=== PATIENT | male | born 1960 | race Caucasian/White ===

== ENCOUNTER 2017-01-30 21:47 | Emergency (ER) | payer OTHER ==
[2017-01-30 21:55] VITALS: TEMP 98.1
--- NOTE | 2017-01-30 21:57 | EDPHY ---
H & P Stated Complaint: back pain, etoh tonight Source: Patient Exam Limitations: No limitations - Personal History Current Tetanus/Diphtheria Vaccine: Yes Current Tetanus Diphtheria and Acellular Pertussis (TDAP): Yes - Medical/Surgical History Hx Asthma: No Hx Chronic Respiratory Disease: No Hx Diabetes: No Hx Cardiac Disease: No Hx Renal Disease: No Hx Cirrhosis: No Hx Alcoholism: No Hx HIV/AIDS: No Hx Splenectomy or Spleen Trauma: No Other PMH: back surgeries, chronic back pain - Social History Smoking Status: Never smoked Time Seen by Provider: 01/30/17 21:56 HPI/ROS: HPI: This is a 56-year-old male presents with Chief Complaint: back pain, took wine Location: Lower back Quality: Sharp intense pain Duration: 1-2 hours prior to arrival Signs and Symptoms: No bleeding, no radiation, no numbness, no weakness, no tingling, no incontinence, + decreased range of motion, no swelling, + pain Timing: Acute on chronic Severity: 10/15 Context: Patient presents with complaints of lower back acute on chronic in 10 sharp pain that started while lying in bed approximately 1-2 hours prior to arrival. He has a history of L4-L5 disc herniation suspects myomectomies from Dr. Jose A Sweeney. He reports that he has been working on the porch placing papers that requires twisting and bending actions. He believes that this is the trigger for his back pain. He did drink some wine tonight but does not take any of his Percocet that he has at home. reports that he was ambulatory but slow and stiff. Denies paresthesias/radiation/incontinence/ urinary symptoms. Patient has a pain stimulator in place. Modifying Factors: Wine Comment: ROS: see HPI Constitutional: No fever, no chills, no weight loss Eyes: No blurred vision Respiratory: No shortness of breath, no cough Cardiovascular: No chest pain Gastrointestinal: No nausea, no vomiting no diarrhea Genitourinary: No dysuria Extremities: No myalgias Neurologic: No weakness, no numbness Skin: No rashes Hematologic: No bruising, no bleeding MEDICAL/SURGICAL/SOCIAL HISTORY: Medical history: Chronic back pain Surgical history: Back surgery Social history: CONSTITUTIONAL: awake and alert, no obvious distress HEENT: Atraumatic and normocephalic. NECK: supple, no midline tenderness, flexion 45 degrees, extension 45 degrees, right and left lateral flexion 45 degrees. No meningismus. Cardiovascular: Normal S1/S2, regular rate, regular rhythm, without murmur rub or gallop. PULMONARY/CHEST: Symmetrical and nontender. no crepitus. Clear to auscultation bilaterally. Good air movement. No accessory muscle usage. ABDOMEN: Soft, nondistended, nontender, no ecchymosis. PELVIC: no pain with rocking; bilateral hips flexion 125 degrees, extension 30 degrees, with no pain internal rotation and no pain external rotation. BACK: No midline tenderness, bilateral lower lumbar reproducible paraspinous tenderness, + paraspinous spasm, deep tendon reflexes 2/2, moderate pain with straight leg raise EXTREMITIES: 2/2 pulses, no deformities, no clubbing, no cyanosis or edema. NEUROLOGICAL: no focal neuro deficits. GCS 15. Light touch sensation intact. SKIN: Warm and dry, no erythema. no rash. Good capillary refill. (Grecia Treviño) Constitutional: Initial Vital Signs Temperature (C) 36.7 C 01/30/17 21:52 Heart Rate 93 01/30/17 21:52 Respiratory Rate 18 01/30/17 21:52 Blood Pressure 124/69 H 01/30/17 21:52 O2 Sat (%) 93 01/30/17 21:52 O2 Delivery Mode Room Air Allergies/Adverse Reactions: melon Allergy (Verified 01/23/16 16:24) walnut Allergy (Verified 01/23/16 16:24) Home Medications: Medication Instructions Recorded Ascorbic Acid [Vitamin C 500 mg 500 mg PO DAILY 07/12/12 (OTC)] Baclofen [Baclofen 10 mg (RX)] 10 mg PO TID 07/12/12 Calcium Citrate/Vitamin D3 1 each PO DAILY 07/12/12 [Calcium Citrate-Vit D Tab] Herbals/Supplements -Info Only 1 each PO AD 07/12/12 Multivitamins [Tab-A-Cammy] 1 each PO DAILY 07/12/12 Pharmacy Completed 07/12/12 07/12/12 oxyCODONE/APAP 5/325 [Percocet 2 tab PO Q8 PRN 07/12/12 5/325 (RX)] Cyclobenzaprine [Flexeril 10 MG 10 mg PO TID PRN #12 tab 01/30/17 (*)] DULoxetine 01/30/17 methylPREDNISolone [Medrol Dose 1 each PO AD #0 ea 01/30/17 Mathieu] Lyrica 01/31/17 Metoprolol Tartrate 01/31/17 Medical Decision Making - Diagnostics Imaging Results: Imaging Impressions Lumbar Spine CT 01/30/17 22:22 Impression: 1. No acute post traumatic findings, with limited assessment of the spinal canal due to unenhanced CT technique. If pain persists and clinical suspicion warrants, consider CT myelogram. 2. L4-L5: Increased severe right and moderate left neural foraminal stenosis. 3. L5-S1: Increased severe left and moderate to severe right neural foraminal stenosis. 4. Nonobstructing right nephrolithiasis. 5. Additional findings as above. Findings discussed with Grecia Treviño 01/30/2017 at 23:04. ED Course/Re-evaluation: CT lumbar spine, IV medications, oral medications ordered Given Percocet, IV Valium, IV Decadron No signs of neurovascular compromise/tenting of skin/compartment syndrome/ extremities and joints examined above and below area of concern and are neurovascularly intact. Called by Radiology who advisedL4-L5: Increased severe right and moderate left neural foraminal stenosis. 3. L5-S1: Increased severe left and moderate to severe right neural foraminal stenosis. 2325: Reassessed patient who reports that his pain is now down to a 2/10. (Grecia Treviño) PHYSICIAN DOCUMENTATION: The patient was evaluated and managed by the Physician Grain Farmworker. My co- signature indicates that I have reviewed this chart and I agree with the findings and plan of care as documented. I am the secondary supervising physician. (Tiffany Jordan) Differential Diagnosis: Back pain including but not limited to muscular pain, herniated disc, spine fracture, intra-abdominal causes and urinary tract infection. (Grecia Treviño) - Data Points Medications Given: Discontinued Medications Cyclobenzaprine HCl (Flexeril 10 Mg Prepack#3) 1 btl TAKEHOME EDNOW ONE Stop: 01/30/17 23:58 Last Admin: 01/30/17 23:58 Dose: 1 btl Dexamethasone (Decadron Injection) 8 mg IVP EDNOW ONE Stop: 01/30/17 22:23 Last Admin: 01/30/17 22:37 Dose: 8 mg Diazepam (Valium Injection) 5 mg IVP EDNOW ONE Stop: 01/30/17 22:23 Last Admin: 01/30/17 22:38 Dose: 5 mg Oxycodone/Acetaminophen (Percocet 5/325) 1 tab PO EDNOW ONE Stop: 01/30/17 22:24 Last Admin: 01/30/17 22:38 Dose: 1 tab Departure - Departure Disposition: Home, Routine, Self-Care Clinical Impression: Foraminal stenosis of lumbar region, Acute exacerbation of chronic low back pain Condition: Good Instructions: Low Back Strain (ED) Referrals: Meka Sweeney MD [Medical Doctor] - 3-4 days, if not improved Prescriptions: Cyclobenzaprine [Flexeril 10 MG (*)] 10 mg PO TID PRN #12 tab PRN Reason: Spasms methylPREDNISolone [Medrol Dose Mathieu] 1 each PO AD #0 ea
[2017-01-30] MEDS ORDERED: DIAZEPAM 10 MG/2 ML SYR IVP ONE (22:22)
[2017-01-30] MEDS ORDERED: DEXAMETHASONE 4 MG/ML VIAL IVP ONE (22:22)
[2017-01-30] MEDS ORDERED: OXYCODONE/APAP 5/325 TAB PO ONE (22:23)
[2017-01-30] MEDS ORDERED: CYCLOBENZAPRINE 10MG PREPACK#3 BTL TAKEHOME ONE ×2 (23:54→23:57)
[2017-01-31 00:09] VITALS: BP 116/75; PULSE 102; RESP 16; O2SAT 98
== END 2017-01-31 00:28 | disposition home or self-care (01) ==
LOC: EDUNIT#
DX: M48.061 Spinal stenosis, lumbar region without neurogenic claudication (principal); G89.29 Other chronic pain
CPT/HCPCS: 96374; J1100

== ENCOUNTER → 2017-02-09 | Outpatient (CLI) | payer OTHER ==
[~2017-02-09] MED LIST: GADOBUTROL 10 ML VIAL IVP ONE
== END ==
LOC: FIMAGING 19:27
PROVIDERS: ATTEND Family Medicine
DX: N40.2 Nodular prostate without lower urinary tract symptoms (principal)
CPT/HCPCS: A9585

== ENCOUNTER 2017-02-16 06:39 | Day surgery (SDC) | payer OTHER ==
[2017-02-16] MEDS ORDERED: LR 1,000 ML IV ONE (06:45)
[2017-02-16] MEDS ORDERED: LIDOCAINE 1% 2 ML INJ ID PRN (06:45)
--- NOTE | 2017-02-16 07:34 | PDGENHP ---
History & Physical Chief Complaint: change in bowel habits Relevant Physical Exam: GEN: NAD. Cardiac: RRR. Lungs: CTA B. Abd: Soft, nt, nd
--- NOTE | 2017-02-16 07:58 | PDANEPAE ---
ANE History of Present Illness 56 yo for colonoscopy ANE Past Medical History - Cardiovascular History Hx Hypertension: Yes Hx Arrhythmias: No Hx Chest Pain: No Hx Coronary Artery / Peripheral Vascular Disease: No Hx CHF / Valvular Disease: No Hx Palpitations: No - Pulmonary History Hx COPD: No Hx Asthma/Reactive Airway Disease: No Hx Recent Upper Respiratory Infection: No Hx Oxygen in Use at Home: No Hx Sleep Apnea: No Sleep Apnea Screening Result - Last Documented: Positive - Neurologic History Hx Cerebrovascular Accident: No Hx Seizures: No Hx Dementia: No - Endocrine History Hx Diabetes: No - Renal History Hx Renal Disorders: No - Liver History Hx Hepatic Disorders: No - Neurological & Psychiatric Hx Hx Neurological and Psychiatric Disorders: No - Cancer History Hx Cancer: No Cancer History Comment: PRECANCEROUS POLYPS - Congenital Disorder History Hx Congenital Disorders: No - GI History Hx Gastrointestinal Disorders: No - Other Health History Other Health History: NEG - Chronic Pain History Chronic Pain: Yes (BACK AND R LEG) - Surgical History Prior Surgeries: CHEEK RECONSTRUCTION, ROSA SHOULDER SCOPE, DISCECTOMY X3. SPINAL CORD STIMULATOR SPRING 2016 ANE Review of Systems Review of Systems: - Exercise capacity METS (RN): 4 METS ANE Patient History - Allergies Allergies/Adverse Reactions: melon Allergy (Verified 01/23/16 16:24) walnut Allergy (Verified 01/23/16 16:24) - Home Medications Home medications: home medication list seen and reviewed Home Medications: Ascorbic Acid [Vitamin C 500 mg (OTC)] 500 mg PO DAILY 07/12/12 [Last Taken 01/22] Baclofen [Baclofen 10 mg (RX)] 10 mg PO TID 07/12/12 [Last Taken 02/16/17 02:00] Calcium Citrate/Vitamin D3 [Calcium Citrate-Vit D Tab] 1 each PO DAILY 07/12/12 [Last Taken 02/15/17] Herbals/Supplements -Info Only 1 each PO AD 07/12/12 [Last Taken 02/15/17] Multivitamins [Tab-A-Cammy] 1 each PO DAILY 07/12/12 [Last Taken 02/15/17] oxyCODONE/APAP 5/325 [Percocet 5/325 (RX)] 2 tab PO Q8 PRN 07/12/12 [Last Taken 02/16/17 04:00] Lyrica 01/31/17 [Last Taken 02/15/17] Metoprolol Tartrate 01/31/17 [Last Taken 02/15/17] - NPO status NPO Status: no food or drink >8 hours NPO Since - Liquids (Date): 02/16/17 NPO Since - Liquids (Time): 22:00 NPO Since - Solids (Date): 02/15/17 NPO Since - Solids (Time): 11:00 - Smoking Hx Smoking Status: Never smoked - Family Anes Hx Family Hx Anesthesia Complications: NONE ANE Labs/Vital Signs - Vital Signs Blood Pressure: 128/94 Heart Rate: 95 Respiratory Rate: 16 O2 Sat (%): 92 Height: 5 ft 10.5 in Weight: 86.183 kg ANE Physical Exam - Airway Mallampati Score: Class 2 Mouth exam: normal dental/mouth exam - Pulmonary Pulmonary: no respiratory distress - Cardiovascular Cardiovascular: regular rate and rhythym - ASA Status ASA Status: II ANE Anesthesia Plan Anesthesia Plan: MAC
[2017-02-16] MEDS ORDERED: PROPOFOL/EMULSION 500 MG/50 ML BOTTLE IV ONE (07:59)
[2017-02-16] MEDS ORDERED: NALOXONE HCL 0.4 MG/ML INJ IVP PRN (08:07)
--- NOTE | 2017-02-16 08:33 | GIREPORT ---
[facility] - Endoscopy Department Patient Name: Axel Moscoso Procedure Date: 02/16/2017 7:51 AM Patient Type: Outpatient Attending MD/ ER Physician: Meño Gutierrez MD Procedure: Colonoscopy Indications: Change in bowel habits. His last colonoscopy was 02/18/2016. Providers: Meño Gutierrez MD Medicines: Monitored Anesthesia Care Complications: No immediate complications. Description of Procedure: After obtaining informed consent, the scope was passed under direct vis ion. Throughout the procedure, the patient's blood pressure, pulse, and oxyg en saturations were monitored continuously. The Colonoscope with irrigatio n channel was introduced through the anus and advanced to the terminal il eum, with identification of the appendiceal orifice and IC valve. The colono scopy was performed without difficulty. The patient tolerated the procedure w ell. The quality of the bowel preparation was good. Findings: The perianal and digital rectal examinations were normal. The terminal ileum appeared normal. A diffuse area of severe melanosis was found in the entire colon. Biops ies were taken with a cold forceps for histology. Verification of patient identification for the specimen was done by the physician and nurse randy ng the patient's name and date. Estimated blood loss was minimal. The retroflexed view of the distal rectum and anal verge was normal and showed no anal or rectal abnormalities. Estimated Blood Loss: Estimated blood loss: none. Post Op Diagnosis: - The examined portion of the ileum was normal. - Melanosis in the colon. Biopsied. - The distal rectum and anal verge are normal on retroflexion view. Recommendation: - Discharge patient to home (with escort). - Resume previous diet. - Continue present medications. - Repeat colonoscopy in 2 years for surveillance (history of multiple p olyps) - Await pathology results. Results are available within 10 days. - Thank you for allowing me to participate in the care of your patient. Attending Participation: I personally performed the entire procedure. Meño Gutierrez MD Meño Gutierrez MD 02/16/2017 8:32:27 AM This report has been signed electronicallyMeño Gutierrez MD Number of Addenda: 0 Note Initiated On: 02/16/2017 7:51 AM Total Procedure Duration Time 0 hours 19 minutes 49 seconds [email or web address]
--- NOTE | 2017-02-16 08:40 | POSTANESTH ---
Post Anesthetic Evaluation Cardiovascular Status: Normal, Stable Respiratory Status: Normal, Stable Level of Consciousness/Mental Status: Can Participate in Eval Pain Control: Adequate, Prn Tx Ordered Nausea/Vomiting Control: Adequate, Prn Tx Ordered Complications Possibly Related to Anesthesia: None Noted
[2017-02-16 09:33] VITALS: BP 134/97; PULSE 78; RESP 14; TEMP 97.5; O2SAT 96
== END 2017-02-16 09:50 | disposition home or self-care (01) ==
LOC: FSGY 06:39
PROVIDERS: ATTEND Internal Medicine Gastroenterology
PROC: 0DJD8ZZ Inspection of Lower Intestinal Tract, Via Natural or Artificial Opening Endoscopic (ICD-10-PCS; principal; 2017-02-16 08:00)
PROC: 0DBE8ZX Excision of Large Intestine, Via Natural or Artificial Opening Endoscopic, Diagnostic (ICD-10-PCS; principal; 2017-02-16 08:00)
DX: R19.4 Change in bowel habit (principal); K63.89 Other specified diseases of intestine; Z86.010 Personal history of colon polyps; I10 Essential (primary) hypertension
CPT/HCPCS: J2704

== ENCOUNTER → 2017-03-03 | Outpatient (CLI) | payer OTHER | LOC: FIMAGING 07:54 | PROVIDERS: ATTEND Physician Assistant Medical | DX: G62.9 Polyneuropathy, unspecified (principal); G31.09 Other frontotemporal neurocognitive disorder; G93.89 Other specified disorders of brain ==

== ENCOUNTER 2017-12-03 18:44 | Emergency (ER) | payer OTHER ==
--- NOTE | 2017-12-03 19:35 | EDPHY ---
H & P Stated Complaint: low platelets at pcp -pt has no complaints Time Seen by Provider: 12/03/17 19:27 HPI/ROS: CHIEF COMPLAINT: low platelets HISTORY OF PRESENT ILLNESS: Patient is a 57-year-old man with no significant past medical history who was seeing his primary Dr. Islas for checkup. They ordered lab work which had to be repeated twice because his blood tests were "clotted". On the 3rd try they found that he had a platelet level of 27. The nurse at the doctor's office was alerted and called the patient to come to the ER for critically low value. The patient denies having any symptoms. He does not have any bleeding of his gums or nose. No bruising or joint pain or swelling. No history of cardiac disease. He is not on any blood thinning medications. No recent fevers or infections. Severity: Asymptomatic Modifying factors: Asymptomatic REVIEW OF SYSTEMS: Constitutional: denies: chills, fever, recent illness, recent injury EENTM: denies: blurred vision, double vision, nose congestion Respiratory: denies: cough, shortness of breath Cardiac: denies: chest pain, irregular heart rate, lightheadedness, palpitations Gastrointestinal/Abdominal: denies: abdominal pain, diarrhea, nausea, vomiting, blood streaked stools Genitourinary: denies: dysuria, frequency, hematuria, pain Musculoskeletal: denies: joint pain, muscle pain Skin: denies: lesions, rash, jaundice, bruising Neurological: denies: headache, numbness, paresthesia, tingling, dizziness, weakness Hematologic/Lymphatic: denies: blood clots, easy bleeding, easy bruising Immunologic/allergic: denies: HIV/AIDS, transplant 10 systems reviewed and negative except as noted EXAM: GENERAL: Well-appearing, well-nourished and in no acute distress. HEAD: Atraumatic, normocephalic. EYES: Pupils equal round and reactive to light, extraocular movements intact, sclera anicteric, conjunctiva are normal. ENT: TMs normal, nares patent, oropharynx clear without exudates. Moist mucous membranes. NECK: Normal range of motion, supple without lymphadenopathy or JVD. LUNGS: Breath sounds clear to auscultation bilaterally and equal. No wheezes rales or rhonchi. HEART: Regular rate and rhythm without murmurs, rubs or gallops. ABDOMEN: Soft, nontender, normoactive bowel sounds. No guarding, no rebound. No masses appreciated. BACK: No CVA tenderness, no spinal tenderness, step-offs or deformities EXTREMITIES: Normal range of motion, no pitting or edema. No clubbing or cyanosis. NEUROLOGICAL: Cranial nerves II through XII grossly intact. Normal speech, normal gait. 5/5 strength, normal movement in all extremities, normal sensation , normal reflexes PSYCH: Normal mood, normal affect. SKIN: Warm, dry, normal turgor, no visible rashes or lesions. Source: Patient Exam Limitations: No limitations - Personal History Current Tetanus/Diphtheria Vaccine: No - Medical/Surgical History Hx Asthma: No Hx Chronic Respiratory Disease: No Hx Diabetes: No Hx Cardiac Disease: No Hx Renal Disease: No Hx Cirrhosis: No Hx Alcoholism: No Hx HIV/AIDS: No Hx Splenectomy or Spleen Trauma: No Other PMH: spinal surgeries - Family History Significant Family History: No pertinent family hx - Social History Smoking Status: Never smoked Alcohol Use: Sober Drug Use: None Constitutional: Initial Vital Signs Temperature (C) 36.5 C 12/03/17 18:49 Heart Rate 78 12/03/17 18:49 Respiratory Rate 16 12/03/17 18:49 Blood Pressure 136/90 H 12/03/17 18:49 O2 Sat (%) 97 12/03/17 18:49 O2 Delivery Mode Room Air Allergies/Adverse Reactions: melon Allergy (Verified 12/03/17 18:47) walnut Allergy (Verified 12/03/17 18:47) Home Medications: Medication Instructions Recorded Ascorbic Acid [Vitamin C 500 mg 500 mg PO DAILY 07/12/12 (OTC)] Baclofen [Baclofen 10 mg (RX)] 10 mg PO TID 07/12/12 Calcium Citrate/Vitamin D3 1 each PO DAILY 07/12/12 [Calcium Citrate-Vit D Tab] Herbals/Supplements -Info Only 1 each PO AD 07/12/12 Multivitamins [Tab-A-Cammy] 1 each PO DAILY 07/12/12 oxyCODONE/APAP 5/325 [Percocet 2 tab PO Q8 PRN 07/12/12 5/325 (RX)] Lyrica 01/31/17 Metoprolol Tartrate 01/31/17 Medical Decision Making ED Course/Re-evaluation: 8:50 p.m. we discussed the CBC results. They are completely normal. Patient declines further workup or testing. He is eager to go home Differential Diagnosis: Partial list of the Differential diagnosis considered include but were not limited to; lab error, thrombocytopenia, ITP and although unlikely based on the history and physical exam, I also considered AML, infection. I discussed these differential diagnoses and the plan with the [patient] as well as the usual and expected course. The [patient understands] that the diagnosis is provisional and that in medicine we are not always correct and that further workup is often warranted. Usual and customary warnings were given. All of the [patient's] questions were answered. The [patient was] instructed to return to the emergency department should the symptoms at all worsen or return, otherwise to followup with the physician as we discussed. - Data Points Laboratory Results: Laboratory Results 12/03/17 20:05 12/03/17 20:05 WBC 6.70 10^3/uL 10^3/uL (3.80-9.50) RBC 4.45 10^6/uL 10^6/uL (4.40-6.38) Hgb 15.9 g/dL g/dL (13.7-17.5) Hct 45.1 % % (40.0-51.0) MCV 101.3 fL H fL (81.5-99.8) MCH 35.7 pg H pg (27.9-34.1) MCHC 35.3 g/dL g/dL (32.4-36.7) RDW 13.4 % % (11.5-15.2) Plt Count 194 10^3/uL 10^3/uL (150-400) MPV 11.4 fL fL (8.7-11.7) Neut % (Auto) 63.1 % % (39.3-74.2) Lymph % (Auto) 25.4 % % (15.0-45.0) [place] % (Auto) 9.7 % % (4.5-13.0) Eos % (Auto) 0.9 % % (0.6-7.6) Baso % (Auto) 0.6 % % (0.3-1.7) Nucleat RBC Rel Count 0.0 % % (0.0-0.2) Absolute Neuts (auto) 4.23 10^3/uL 10^3/uL (1.70-6.50) Absolute Lymphs (auto) 1.70 10^3/uL 10^3/uL (1.00-3.00) Absolute Monos (auto) 0.65 10^3/uL 10^3/uL (0.30-0.80) Absolute Eos (auto) 0.06 10^3/uL 10^3/uL (0.03-0.40) Absolute Basos (auto) 0.04 10^3/uL 10^3/uL (0.02-0.10) Absolute Nucleated RBC 0.00 10^3/uL 10^3/uL (0-0.01) Immature Gran % 0.3 % % (0.0-1.1) Immature Gran # 0.02 10^3/uL 10^3/uL (0.00-0.10) Departure - Departure Disposition: Home, Routine, Self-Care Clinical Impression: Feared complaint without diagnosis Condition: Fair Instructions: Normal Exam (ED) Referrals: Roberto Islas, [Primary Care Provider] - As per Instructions
[2017-12-03 20:15] LABS: PLATELET COUNT 194 10^3/uL (150-400)
[2017-12-03 21:04] VITALS: BP 151/94
== END 2017-12-03 21:03 | disposition home or self-care (01) ==
DX: Z71.1 Person with feared health complaint in whom no diagnosis is made (principal)

== ENCOUNTER → 2018-08-23 | Outpatient (CLI) | payer OTHER | LOC: FIMAGING 11:38 ==